=== PATIENT | male | born 1935 | race Caucasian/White ===

== ENCOUNTER 2017-12-10 11:03 | Observation (INO) | payer BC ==
[2017-12-10 17:49] LABS: ADD MAN DIFF? NO
[2017-12-10 17:53] LABS: WHITE BLOOD COUNT 7.4 10^3/ul (4.8-10.8)
[2017-12-10 17:53] LABS: BASOPHILS % 0.4 % (0.0-2.0); EOSINOPHILS # 0.3 10^3/ul (0.0-0.5); EOSINOPHILS % 3.6 % (0.0-7.0); HEMATOCRIT 44.6 % (42.0-52.0); HEMOGLOBIN 14.9 g/dl (14.0-18.0); LYMPHOCYTES # 2.5 10^3/ul (0.8-2.9); LYMPHOCYTES % 33.6 % (15.0-51.0); MEAN CORPUSCULAR HEMOGLOBIN 30.3 pg (29.0-33.0); MEAN CORPUSCULAR HGB CONC 33.4 g/dl (32.0-37.0); MEAN CORPUSCULAR VOLUME 90.8 fl (82.0-101.0); MONOCYTE # 0.6 10^3/ul (0.3-0.9); MONOCYTES % 8.5 % (0.0-11.0); NEUTROPHILS % 53.8 % (39.0-77.0); PLATELET COUNT 179 10^3/UL (140-415); RED BLOOD COUNT 4.91 10^6/ul (4.70-6.10); RED CELL DISTRIBUTION WIDTH 13.3 % (11.5-14.5)
[2017-12-10 18:10] LABS: ALANINE AMINOTRANSFERASE 65 IU/L (13-69); ALBUMIN 4.9 g/dl (3.3-4.9); ALBUMIN/GLOBULIN RATIO 1.19; ALKALINE PHOSPHATASE 79 IU/L (42-121); ANION GAP 15 (8-16); ASPARTATE AMINO TRANSFERASE 38 IU/L (15-46); BILIRUBIN,INDIRECT 1.4 mg/dl (0-1.1); BILIRUBIN,TOTAL 1.4 mg/dl (0.2-1.3); BLOOD UREA NITROGEN 26 mg/dl (7-20); CALCIUM 10.7 mg/dl (8.4-10.2); CARBON DIOXIDE 28 mmol/L (21-31); CHLORIDE 104 mmol/L (97-110); CREATININE 1.23 mg/dl (0.61-1.24); GLUCOSE 163 mg/dl (70-220); LIPASE 92 U/L (23-300); POTASSIUM 4.7 mmol/L (3.5-5.1); SODIUM 142 mmol/L (135-144)
[2017-12-10] MEDS: ASPIRIN 81 MG TAB PO (18:12)
[2017-12-10 18:15] LABS: INR 1.04; PROTIME 13.7 Sec (11.9-14.9); PT RATIO 1.1
[2017-12-10 18:22] LABS: B-TYPE NATRIURETIC PEPTIDE 867 PG/ML (0-450); TROPONIN-I 0.014 ng/ml (0.00-0.12)
[2017-12-10] MEDS: NITROGLYCERIN (SL) 0.4 MG TAB SL (18:34)
[2017-12-10] MEDS ORDERED: ACETAMINOPHEN 325 MG TAB PO (22:30)
[2017-12-10] MEDS ORDERED: NITROGLYCERIN (SL) 0.4 MG TAB SL ×2 (22:30)
[2017-12-10] MEDS ORDERED: morphine 2 MG INJ IV (22:30)
[2017-12-10] MEDS ORDERED: ONDANSETRON 4 MG INJ IV (22:30)
[2017-12-10] MEDS ORDERED: NACL 0.9% 3 ML SYG IV (22:30)
[2017-12-10] MEDS ORDERED: ALBUTEROL/IPRATROPIUM (NEB) 3 ML AMP INH (22:30)
[2017-12-10 23:25] LABS: CREATINE KINASE 59 IU/L (23-200)
[2017-12-10 23:39] LABS: CK INDEX 2.7; CK-MB 1.61 ng/ml (0.0-2.4); TROPONIN-I 0.028 ng/ml (0.00-0.12)
[2017-12-11] MEDS: ACCU-CHEK XX (02:00)
[2017-12-11 06:24] LABS: ADD MAN DIFF? NO
[2017-12-11 06:32] LABS: BASOPHILS % 0.3 % (0.0-2.0); EOSINOPHILS # 0.3 10^3/ul (0.0-0.5); EOSINOPHILS % 4.7 % (0.0-7.0); HEMOGLOBIN 13.5 g/dl (14.0-18.0); LYMPHOCYTES # 2.5 10^3/ul (0.8-2.9); LYMPHOCYTES % 39.7 % (15.0-51.0); MEAN CORPUSCULAR HEMOGLOBIN 30.6 pg (29.0-33.0); MEAN CORPUSCULAR HGB CONC 33.8 g/dl (32.0-37.0); MEAN CORPUSCULAR VOLUME 90.7 fl (82.0-101.0); MEAN PLATELET VOLUME 10.1 fl (7.4-10.4); MONOCYTE # 0.8 10^3/ul (0.3-0.9); MONOCYTES % 12.3 % (0.0-11.0); NEUTROPHIL # 2.7 10^3/ul (1.6-7.5); NEUTROPHILS % 42.7 % (39.0-77.0); PLATELET COUNT 152 10^3/UL (140-415); RED BLOOD COUNT 4.41 10^6/ul (4.70-6.10); RED CELL DISTRIBUTION WIDTH 13.3 % (11.5-14.5)
[2017-12-11 06:32] LABS: WHITE BLOOD COUNT 6.3 10^3/ul (4.8-10.8)
[2017-12-11 06:55] LABS: ALANINE AMINOTRANSFERASE 49 IU/L (13-69); ALBUMIN 3.7 g/dl (3.3-4.9); ALBUMIN/GLOBULIN RATIO 1.12; ALKALINE PHOSPHATASE 47 IU/L (42-121); ANION GAP 10 (8-16); ASPARTATE AMINO TRANSFERASE 31 IU/L (15-46); BILIRUBIN,INDIRECT 1.4 mg/dl (0-1.1); BILIRUBIN,TOTAL 1.4 mg/dl (0.2-1.3); BLOOD UREA NITROGEN 25 mg/dl (7-20); CALCIUM 9.8 mg/dl (8.4-10.2); CARBON DIOXIDE 27 mmol/L (21-31); CHLORIDE 109 mmol/L (97-110); CHOL/HDL RATIO 2.8 RATIO; CHOLESTEROL 113 mg/dl (100-200); CREATININE 1.18 mg/dl (0.61-1.24); GLUCOSE 72 mg/dl (70-220); HDL CHOLESTEROL 39 mg/dl (31-75); LDL CHOLESTEROL,CALCULATED 56 mg/dl; MAGNESIUM 2.2 mg/dl (1.7-2.5); POTASSIUM 3.9 mmol/L (3.5-5.1); SODIUM 142 mmol/L (135-144); TRIGLYCERIDES 91 mg/dl (0-149)
[2017-12-11 07:22] LABS: CREATINE KINASE 55 IU/L (23-200)
[2017-12-11 07:34] LABS: CK INDEX 2.1
[2017-12-11] MEDS: INSULIN ASPART [NOVOLOG] 3 ML PEN SC ×4 (07:35→21:00)
[2017-12-11 07:36] LABS: CK-MB 1.16 ng/ml (0.0-2.4)
[2017-12-11 07:42] LABS: HEMOGLOBIN A1C 8.4 % (0-5.9)
[2017-12-11] MEDS: ASPIRIN 81 MG TAB PO (08:56)
[2017-12-11] MEDS: APIXABAN 5 MG TABLET PO ×2 (08:56→20:48)
[2017-12-11] MEDS: SALMETEROL/FLUTICASONE 250/50 INHA INH ×2 (08:58→20:47)
[2017-12-11] MEDS: INSULIN GLARGINE [LANtus] 3 ML PEN SC (09:09)
[2017-12-11] MEDS: FUROSEMIDE 20 MG TAB PO (10:57)
[2017-12-11] MEDS: ATORVASTATIN 20 MG TAB PO (20:49)
[2017-12-11] MEDS: TAMSULOSIN (SR) 0.4 MG CAP PO (22:11)
[2017-12-12] MEDS: ACCU-CHEK XX (02:00)
[2017-12-12 05:30] LABS: ADD MAN DIFF? NO
[2017-12-12 05:40] LABS: BASOPHILS % 0.6 % (0.0-2.0); EOSINOPHILS # 0.3 10^3/ul (0.0-0.5); EOSINOPHILS % 4.1 % (0.0-7.0); HEMATOCRIT 39.9 % (42.0-52.0); HEMOGLOBIN 13.5 g/dl (14.0-18.0); LYMPHOCYTES # 2.8 10^3/ul (0.8-2.9); LYMPHOCYTES % 41.2 % (15.0-51.0); MEAN CORPUSCULAR HEMOGLOBIN 30.5 pg (29.0-33.0); MEAN CORPUSCULAR HGB CONC 33.8 g/dl (32.0-37.0); MEAN CORPUSCULAR VOLUME 90.1 fl (82.0-101.0); MEAN PLATELET VOLUME 10.3 fl (7.4-10.4); MONOCYTE # 0.7 10^3/ul (0.3-0.9); MONOCYTES % 10.1 % (0.0-11.0); NEUTROPHILS % 43.9 % (39.0-77.0); PLATELET COUNT 155 10^3/UL (140-415); RED BLOOD COUNT 4.43 10^6/ul (4.70-6.10); RED CELL DISTRIBUTION WIDTH 13.5 % (11.5-14.5)
[2017-12-12 05:40] LABS: WHITE BLOOD COUNT 6.9 10^3/ul (4.8-10.8)
[2017-12-12 06:02] LABS: ALANINE AMINOTRANSFERASE 50 IU/L (13-69); ALBUMIN 3.9 g/dl (3.3-4.9); ALBUMIN/GLOBULIN RATIO 1.25; ALKALINE PHOSPHATASE 63 IU/L (42-121); ANION GAP 14 (8-16); ASPARTATE AMINO TRANSFERASE 35 IU/L (15-46); BILIRUBIN,INDIRECT 0.7 mg/dl (0-1.1); BILIRUBIN,TOTAL 0.7 mg/dl (0.2-1.3); BLOOD UREA NITROGEN 34 mg/dl (7-20); CALCIUM 9.4 mg/dl (8.4-10.2); CARBON DIOXIDE 26 mmol/L (21-31); CHLORIDE 108 mmol/L (97-110); CREATININE 1.35 mg/dl (0.61-1.24); GLUCOSE 106 mg/dl (70-220); MAGNESIUM 2.1 mg/dl (1.7-2.5); PHOSPHORUS 5.1 mg/dl (2.5-4.9); SODIUM 144 mmol/L (135-144)
[2017-12-12 06:09] LABS: LIPASE 92 U/L (23-300)
[2017-12-12 06:11] LABS: TROPONIN-I 0.023 ng/ml (0.00-0.12)
[2017-12-12] MEDS: INSULIN ASPART [NOVOLOG] 3 ML PEN SC ×3 (07:35→17:24)
[2017-12-12] MEDS: INSULIN GLARGINE [LANtus] 3 ML PEN SC (09:00)
[2017-12-12] MEDS: APIXABAN 5 MG TABLET PO (09:25)
[2017-12-12] MEDS: FUROSEMIDE 20 MG TAB PO (09:26)
[2017-12-12] MEDS: ASPIRIN 81 MG TAB PO (09:29)
[2017-12-12] MEDS: SALMETEROL/FLUTICASONE 250/50 INHA INH (09:29)
[2017-12-12] MEDS: REGADENOSON 0.4 MG/5 ML SYG (14:36)
== END 2017-12-12 17:59 | disposition home or self-care (01) ==
LOC: E/R 11:03 → MS3 12-11 20:12
DX: R07.9 Chest pain, unspecified (principal); E11.9 Type 2 diabetes mellitus without complications; I48.91 Unspecified atrial fibrillation; N40.0 Benign prostatic hyperplasia without lower urinary tract symptoms; I25.10 Atherosclerotic heart disease of native coronary artery without angina pectoris; I50.20 Unspecified systolic (congestive) heart failure; Z98.61 Coronary angioplasty status; Z79.4 Long term (current) use of insulin; Z79.82 Long term (current) use of aspirin; Z95.810 Presence of automatic (implantable) cardiac defibrillator
CPT/HCPCS: 36415; 71045; 78452; 80053; 80061; 82550; 82553; 82962; 83036; 83690; 83735; 83880; 84100; 84484; 85025; 85610; 93005; 93017; 99217; 99285-25

== ENCOUNTER 2018-09-08 22:17 | Inpatient (IN) | payer BC ==
[2018-09-09 00:46] LABS: URINE BLOOD (Dip) POC Negative (NEGATIVE); URINE GLUCOSE (Dip) POC Negative (NEGATIVE); URINE KETONES (Dip) POC Negative (NEGATIVE); URINE LEUKOCYTE EST (Dip) POC Negative (NEGATIVE); URINE NITRITE (Dip) POC Negative (NEGATIVE); URINE TOTAL PROTEIN POC Negative (NEGATIVE)
[2018-09-09 01:16] LABS: ADD MAN DIFF? NO
[2018-09-09 01:18] LABS: WHITE BLOOD COUNT 7.5 10^3/ul (4.8-10.8)
[2018-09-09 01:18] LABS: BASOPHILS % 0.3 % (0.0-2.0); EOSINOPHILS # 0.3 10^3/ul (0.0-0.5); EOSINOPHILS % 3.3 % (0.0-7.0); HEMATOCRIT 33.3 % (42.0-52.0); HEMOGLOBIN 10.9 g/dl (14.0-18.0); LYMPHOCYTES # 2.3 10^3/ul (0.8-2.9); LYMPHOCYTES % 30.4 % (15.0-51.0); MEAN CORPUSCULAR HEMOGLOBIN 30.9 pg (29.0-33.0); MEAN CORPUSCULAR HGB CONC 32.7 g/dl (32.0-37.0); MEAN CORPUSCULAR VOLUME 94.3 fl (82.0-101.0); MONOCYTE # 0.8 10^3/ul (0.3-0.9); MONOCYTES % 10.5 % (0.0-11.0); NEUTROPHIL # 4.1 10^3/ul (1.6-7.5); NEUTROPHILS % 54.8 % (39.0-77.0); PLATELET COUNT 137 10^3/UL (140-415); RED BLOOD COUNT 3.53 10^6/ul (4.70-6.10); RED CELL DISTRIBUTION WIDTH 12.8 % (11.5-14.5)
[2018-09-09 01:25] LABS: ALANINE AMINOTRANSFERASE 115 IU/L (13-69); ALBUMIN 4.5 g/dl (3.3-4.9); ALBUMIN/GLOBULIN RATIO 1.32; ALKALINE PHOSPHATASE 104 IU/L (42-121); ANION GAP 13 (5-13); ASPARTATE AMINO TRANSFERASE 89 IU/L (15-46); BILIRUBIN,INDIRECT 0.8 mg/dl (0-1.1); BILIRUBIN,TOTAL 0.8 mg/dl (0.2-1.3); BLOOD UREA NITROGEN 82 mg/dl (7-20); CALCIUM 9.3 mg/dl (8.4-10.2); CARBON DIOXIDE 14 mmol/L (21-31); CHLORIDE 111 mmol/L (97-110); CREATININE 2.22 mg/dl (0.61-1.24); GLUCOSE 205 mg/dl (70-220); LIPASE 243 U/L (23-300); SODIUM 138 mmol/L (135-144); TOTAL PROTEIN 7.9 g/dl (6.1-8.1)
[2018-09-09 01:32] LABS: POTASSIUM 6.6 mmol/L (3.5-5.1)
[2018-09-09 01:36] LABS: B-TYPE NATRIURETIC PEPTIDE 1970 PG/ML (0-450); TROPONIN-I 0.043 ng/ml (0.000-0.120)
[2018-09-09] MEDS: NA POLYST SULFON 15 GM/60 ML BTL PO ×2 (01:41→20:37)
[2018-09-09] MEDS: ALBUTEROL 0.5% (NEB) 2.5 MG/0.5 ML AMP INH (01:48)
[2018-09-09] MEDS: INSULIN REGULAR, HUMAN 100 UNIT/1 ML 3ML VIAL IVP (03:04)
[2018-09-09] MEDS: DEXTROSE 50% 50 ML SYRINGE IV ×2 (03:10→04:23)
[2018-09-09] MEDS ORDERED: ONDANSETRON 4 MG INJ IV (03:30)
[2018-09-09] MEDS ORDERED: ACETAMINOPHEN 325 MG TAB PO (03:30)
[2018-09-09] MEDS ORDERED: NACL 0.9% 3 ML SYG IV (03:30)
[2018-09-09] MEDS ORDERED: BISACODYL (EC) 5 MG TAB PO (03:30)
[2018-09-09] MEDS ORDERED: DOCUSATE SODIUM 100 MG CAP PO (03:30)
[2018-09-09] MEDS: CALCIUM GLUCONATE 10% 1 GM in DEXTROSE 5% 100 ML IVPB (04:07)
[2018-09-09] MEDS: SOD CHLORIDE 0.9% 1,000 ML IV (04:29)
[2018-09-09 06:23] LABS: ADD MAN DIFF? NO
[2018-09-09 06:29] LABS: BASOPHILS % 0.3 % (0.0-2.0); EOSINOPHILS # 0.2 10^3/ul (0.0-0.5); EOSINOPHILS % 2.2 % (0.0-7.0); HEMATOCRIT 31.2 % (42.0-52.0); HEMOGLOBIN 10.1 g/dl (14.0-18.0); LYMPHOCYTES % 28.1 % (15.0-51.0); MEAN CORPUSCULAR HEMOGLOBIN 30.5 pg (29.0-33.0); MEAN CORPUSCULAR HGB CONC 32.4 g/dl (32.0-37.0); MEAN CORPUSCULAR VOLUME 94.3 fl (82.0-101.0); MEAN PLATELET VOLUME 10.6 fl (7.4-10.4); MONOCYTE # 0.7 10^3/ul (0.3-0.9); MONOCYTES % 10.2 % (0.0-11.0); NEUTROPHIL # 4.1 10^3/ul (1.6-7.5); NEUTROPHILS % 58.9 % (39.0-77.0); PLATELET COUNT 122 10^3/UL (140-415); RED BLOOD COUNT 3.31 10^6/ul (4.70-6.10); RED CELL DISTRIBUTION WIDTH 12.9 % (11.5-14.5)
[2018-09-09 06:29] LABS: WHITE BLOOD COUNT 6.9 10^3/ul (4.8-10.8)
[2018-09-09] MEDS ORDERED: LORAZEPAM 0.5 MG TAB PO (06:30)
[2018-09-09 06:53] LABS: ALANINE AMINOTRANSFERASE 107 IU/L (13-69); ALBUMIN 4.1 g/dl (3.3-4.9); ALBUMIN/GLOBULIN RATIO 1.36; ALKALINE PHOSPHATASE 83 IU/L (42-121); ANION GAP 9 (5-13); ASPARTATE AMINO TRANSFERASE 77 IU/L (15-46); BILIRUBIN,INDIRECT 1.1 mg/dl (0-1.1); BILIRUBIN,TOTAL 1.1 mg/dl (0.2-1.3); BLOOD UREA NITROGEN 81 mg/dl (7-20); CALCIUM 9.3 mg/dl (8.4-10.2); CARBON DIOXIDE 16 mmol/L (21-31); CHLORIDE 113 mmol/L (97-110); CREATININE 2.25 mg/dl (0.61-1.24); GLUCOSE 193 mg/dl (70-220); POTASSIUM 5.8 mmol/L (3.5-5.1); SODIUM 138 mmol/L (135-144); TOTAL PROTEIN 7.1 g/dl (6.1-8.1)
[2018-09-09 07:47] LABS: CREATINE KINASE 1304 IU/L (23-200)
[2018-09-09 08:00] LABS: CK INDEX 0.8; TROPONIN-I 0.038 ng/ml (0.000-0.120)
[2018-09-09] MEDS ORDERED: DEXTROSE 50% 50 ML SYRINGE IV ×2 (08:00)
[2018-09-09] MEDS ORDERED: GLUCOSE GEL 15 GRAM TUBE BUCCAL (08:00)
[2018-09-09] MEDS ORDERED: GLUCAGON 1 MG INJ IM (08:00)
[2018-09-09] MEDS ORDERED: GLUCOSE GEL 15 GRAM TUBE PO ×2 (08:00)
[2018-09-09] MEDS ORDERED: LANTUS SC (09:00)
[2018-09-09] MEDS: FINASTERIDE 5 MG TAB PO (09:36)
[2018-09-09 11:03] LABS: ADD UMIC NO; UR ASCORBIC ACID 20 mg/dL (NEGATIVE); UR BILIRUBIN (Dip) NEGATIVE (NEGATIVE); UR BLOOD (Dip) NEGATIVE (NEGATIVE); UR CLARITY CLEAR (CLEAR); UR COLOR YELLOW (YELLOW); UR GLUCOSE (Dip) NEGATIVE (NEGATIVE); UR KETONES (Dip) NEGATIVE (NEGATIVE); UR LEUKOCYTE ESTERASE (Dip) NEGATIVE Leu/ul (NEGATIVE); UR NITRITE (Dip) NEGATIVE (NEGATIVE); UR SPECIFIC GRAVITY (Dip) 1.012 (1.003-1.030); UR TOTAL PROTEIN (Dip) NEGATIVE (NEGATIVE); UR UROBILINOGEN (Dip) NEGATIVE (NEGATIVE)
[2018-09-09 11:10] LABS: SODIUM,URINE RANDOM 46 mmol/L (30-90)
[2018-09-09 11:12] LABS: CREATININE,URINE RANDOM 66.08 mg/dl (20-370); PROTEIN/CREAT RATIO 0.13 RATIO
[2018-09-09] MEDS: GABAPENTIN 100 MG CAP PO ×2 (12:43→21:00)
[2018-09-09] MEDS: BACLOFEN 10 MG TAB PO ×2 (12:43→20:39)
[2018-09-09] MEDS: ALBUTEROL/IPRATROPIUM (NEB) 3 ML AMP HHN ×3 (12:51→20:44)
[2018-09-09] MEDS: CITRIC ACID/NA CITRATE 30 ML CUP PO ×2 (16:08→20:39)
[2018-09-09 19:01] LABS: ANION GAP 11 (5-13); BLOOD UREA NITROGEN 71 mg/dl (7-20); CALCIUM 9.3 mg/dl (8.4-10.2); CARBON DIOXIDE 17 mmol/L (21-31); CHLORIDE 111 mmol/L (97-110); CREATININE 1.98 mg/dl (0.61-1.24); GLUCOSE 172 mg/dl (70-220); POTASSIUM 5.9 mmol/L (3.5-5.1); SODIUM 139 mmol/L (135-144)
[2018-09-09] MEDS: ATORVASTATIN 20 MG TAB PO (20:38)
[2018-09-09] MEDS: TAMSULOSIN (SR) 0.4 MG CAP PO (21:01)
[2018-09-10] MEDS: ALBUTEROL/IPRATROPIUM (NEB) 3 ML AMP HHN ×6 (00:25→21:11)
[2018-09-10 06:10] LABS: ADD MAN DIFF? NO
[2018-09-10 06:23] LABS: WHITE BLOOD COUNT 7.3 10^3/ul (4.8-10.8)
[2018-09-10 06:23] LABS: BASOPHILS % 0.3 % (0.0-2.0); EOSINOPHILS # 0.2 10^3/ul (0.0-0.5); EOSINOPHILS % 3.3 % (0.0-7.0); HEMATOCRIT 34.9 % (42.0-52.0); HEMOGLOBIN 11.2 g/dl (14.0-18.0); LYMPHOCYTES # 2.3 10^3/ul (0.8-2.9); LYMPHOCYTES % 30.8 % (15.0-51.0); MEAN CORPUSCULAR HEMOGLOBIN 30.6 pg (29.0-33.0); MEAN CORPUSCULAR HGB CONC 32.1 g/dl (32.0-37.0); MEAN CORPUSCULAR VOLUME 95.4 fl (82.0-101.0); MEAN PLATELET VOLUME 10.5 fl (7.4-10.4); MONOCYTE # 0.8 10^3/ul (0.3-0.9); NEUTROPHILS % 54.2 % (39.0-77.0); PLATELET COUNT 139 10^3/UL (140-415); RED BLOOD COUNT 3.66 10^6/ul (4.70-6.10); RED CELL DISTRIBUTION WIDTH 12.9 % (11.5-14.5)
[2018-09-10 06:42] LABS: ANION GAP 11 (5-13); BLOOD UREA NITROGEN 57 mg/dl (7-20); CALCIUM 9.7 mg/dl (8.4-10.2); CARBON DIOXIDE 22 mmol/L (21-31); CHLORIDE 112 mmol/L (97-110); CREATININE 1.72 mg/dl (0.61-1.24); GLUCOSE 145 mg/dl (70-220); POTASSIUM 5.4 mmol/L (3.5-5.1); SODIUM 145 mmol/L (135-144)
[2018-09-10] MEDS: CITRIC ACID/NA CITRATE 30 ML CUP PO ×3 (09:34→20:43)
[2018-09-10] MEDS: FINASTERIDE 5 MG TAB PO (09:35)
[2018-09-10] MEDS: BACLOFEN 10 MG TAB PO ×3 (09:35→20:41)
[2018-09-10] MEDS: GABAPENTIN 100 MG CAP PO ×3 (09:35→20:41)
[2018-09-10] MEDS: INSULIN GLARGINE [LANTus] (100 UNITS/ML) SYG SC (09:40)
[2018-09-10 10:02] LABS: IRON 80 ug/dl (35-150)
[2018-09-10] MEDS: INFLUENZA VIRUS VACCINE 0.5 ML (DISPENSING) IM* (10:03)
[2018-09-10 10:12] LABS: % IRON SATURATION 24 % SAT (22-52); TOTAL IRON BINDING CAPACITY 340 ug/dl (241-421)
[2018-09-10 10:15] LABS: HEMOGLOBIN A1C 8.9 % (0-5.9)
[2018-09-10] MEDS: ATORVASTATIN 20 MG TAB PO (20:41)
[2018-09-10] MEDS: TAMSULOSIN (SR) 0.4 MG CAP PO (20:43)
[2018-09-10] MEDS: IOHEXOL 14.3 MG(I)/ML (ADULT) BTL PO (21:58)
[2018-09-11] MEDS: ALBUTEROL/IPRATROPIUM (NEB) 3 ML AMP HHN ×6 (02:24→20:04)
[2018-09-11 06:00] LABS: ADD MAN DIFF? NO
[2018-09-11 06:01] LABS: WHITE BLOOD COUNT 6.3 10^3/ul (4.8-10.8)
[2018-09-11 06:01] LABS: BASOPHILS % 0.3 % (0.0-2.0); EOSINOPHILS # 0.2 10^3/ul (0.0-0.5); EOSINOPHILS % 3.7 % (0.0-7.0); HEMATOCRIT 32.4 % (42.0-52.0); HEMOGLOBIN 10.5 g/dl (14.0-18.0); LYMPHOCYTES % 31.9 % (15.0-51.0); MEAN CORPUSCULAR HEMOGLOBIN 30.9 pg (29.0-33.0); MEAN CORPUSCULAR HGB CONC 32.4 g/dl (32.0-37.0); MEAN CORPUSCULAR VOLUME 95.3 fl (82.0-101.0); MEAN PLATELET VOLUME 10.3 fl (7.4-10.4); MONOCYTE # 0.7 10^3/ul (0.3-0.9); MONOCYTES % 11.3 % (0.0-11.0); NEUTROPHIL # 3.3 10^3/ul (1.6-7.5); NEUTROPHILS % 52.6 % (39.0-77.0); PLATELET COUNT 135 10^3/UL (140-415); RED CELL DISTRIBUTION WIDTH 12.9 % (11.5-14.5)
[2018-09-11 06:57] LABS: ANION GAP 7 (5-13); BLOOD UREA NITROGEN 38 mg/dl (7-20); CALCIUM 9.3 mg/dl (8.4-10.2); CARBON DIOXIDE 27 mmol/L (21-31); CHLORIDE 111 mmol/L (97-110); CREATININE 1.46 mg/dl (0.61-1.24); GLUCOSE 94 mg/dl (70-220); SODIUM 145 mmol/L (135-144)
[2018-09-11] MEDS: CITRIC ACID/NA CITRATE 30 ML CUP PO ×3 (08:16→20:53)
[2018-09-11] MEDS: BACLOFEN 10 MG TAB PO ×3 (08:17→20:53)
[2018-09-11] MEDS: BISACODYL (EC) 5 MG TAB PO ×2 (08:17→16:13)
[2018-09-11] MEDS: FINASTERIDE 5 MG TAB PO (08:17)
[2018-09-11] MEDS: INSULIN GLARGINE [LANTus] (100 UNITS/ML) SYG SC (08:28)
[2018-09-11] MEDS: GABAPENTIN 100 MG CAP PO ×3 (09:16→20:53)
[2018-09-11] MEDS: POLYETHYLENE GLYCOL 3350 119 GM POWDER PO ×2 (11:40→16:13)
[2018-09-11] MEDS: FERROUS SULFATE (EC) 325 MG TAB PO ×2 (12:49→20:53)
[2018-09-11] MEDS: MAGNESIUM CITRATE 300 ML BTL PO (12:50)
[2018-09-11] MEDS: ATORVASTATIN 20 MG TAB PO (20:52)
[2018-09-11] MEDS: TAMSULOSIN (SR) 0.4 MG CAP PO (20:56)
[2018-09-12] MEDS: ALBUTEROL/IPRATROPIUM (NEB) 3 ML AMP HHN ×6 (01:11→20:59)
[2018-09-12 05:44] LABS: ADD MAN DIFF? NO
[2018-09-12 05:53] LABS: BASOPHILS % 0.3 % (0.0-2.0); EOSINOPHILS # 0.3 10^3/ul (0.0-0.5); EOSINOPHILS % 5.4 % (0.0-7.0); HEMATOCRIT 36.1 % (42.0-52.0); HEMOGLOBIN 11.6 g/dl (14.0-18.0); LYMPHOCYTES % 32.7 % (15.0-51.0); MEAN CORPUSCULAR HEMOGLOBIN 30.9 pg (29.0-33.0); MEAN CORPUSCULAR HGB CONC 32.1 g/dl (32.0-37.0); MEAN PLATELET VOLUME 10.4 fl (7.4-10.4); MONOCYTE # 0.7 10^3/ul (0.3-0.9); MONOCYTES % 11.2 % (0.0-11.0); NEUTROPHILS % 50.2 % (39.0-77.0); PLATELET COUNT 146 10^3/UL (140-415); RED BLOOD COUNT 3.76 10^6/ul (4.70-6.10); RED CELL DISTRIBUTION WIDTH 12.8 % (11.5-14.5)
[2018-09-12 06:43] LABS: ANION GAP 6 (5-13)
[2018-09-12 07:05] LABS: BLOOD UREA NITROGEN 33 mg/dl (7-20); CALCIUM 9.5 mg/dl (8.4-10.2); CARBON DIOXIDE 27 mmol/L (21-31); CHLORIDE 113 mmol/L (97-110); CREATININE 1.48 mg/dl (0.61-1.24); GLUCOSE 64 mg/dl (70-220); POTASSIUM 4.8 mmol/L (3.5-5.1); SODIUM 146 mmol/L (135-144)
[2018-09-12] MEDS: FINASTERIDE 5 MG TAB PO (08:35)
[2018-09-12] MEDS: FERROUS SULFATE (EC) 325 MG TAB PO ×3 (08:35→21:52)
[2018-09-12] MEDS: AMIODARONE 200 MG TAB PO ×2 (08:35→21:00)
[2018-09-12] MEDS: GABAPENTIN 100 MG CAP PO ×3 (08:35→21:52)
[2018-09-12] MEDS: BACLOFEN 10 MG TAB PO ×3 (08:35→21:52)
[2018-09-12] MEDS: CITRIC ACID/NA CITRATE 30 ML CUP PO ×3 (08:36→21:53)
[2018-09-12] MEDS: INSULIN GLARGINE [LANTus] (100 UNITS/ML) SYG SC (08:50)
[2018-09-12] MEDS: DEXTROSE 5%-0.45% NACL 1,000 ML IV (09:56)
[2018-09-12] MEDS ORDERED: PROPOFOL 20 ML (15:31)
[2018-09-12] MEDS ORDERED: EPHEDrine SULFATE 50 MG/5 ML SYG IV (17:00)
[2018-09-12] MEDS ORDERED: hydrALAzine 20 MG INJ IV (17:00)
[2018-09-12] MEDS ORDERED: LABETALOL HCL 20MG INJ IV (17:00)
[2018-09-12] MEDS ORDERED: FENTAnyl 50 MCG/ML VIAL IV (17:00)
[2018-09-12] MEDS: INSULIN ASPART [NOVOLOG] 3 ML PEN SC ×2 (18:00→21:00)
[2018-09-12] MEDS: TAMSULOSIN (SR) 0.4 MG CAP PO (21:52)
[2018-09-12] MEDS: ATORVASTATIN 20 MG TAB PO (21:53)
[2018-09-13] MEDS: ALBUTEROL/IPRATROPIUM (NEB) 3 ML AMP HHN ×5 (00:40→15:54)
[2018-09-13] MEDS: AMIODARONE 200 MG TAB PO ×2 (00:54→08:53)
[2018-09-13] MEDS: ACCU-CHEK XX (02:00)
[2018-09-13 06:58] LABS: ADD MAN DIFF? NO
[2018-09-13 07:08] LABS: WHITE BLOOD COUNT 7.2 10^3/ul (4.8-10.8)
[2018-09-13 07:08] LABS: BASOPHILS % 0.3 % (0.0-2.0); EOSINOPHILS # 0.2 10^3/ul (0.0-0.5); EOSINOPHILS % 2.8 % (0.0-7.0); HEMATOCRIT 35.8 % (42.0-52.0); HEMOGLOBIN 11.5 g/dl (14.0-18.0); LYMPHOCYTES # 1.4 10^3/ul (0.8-2.9); LYMPHOCYTES % 19.4 % (15.0-51.0); MEAN CORPUSCULAR HEMOGLOBIN 30.7 pg (29.0-33.0); MEAN CORPUSCULAR HGB CONC 32.1 g/dl (32.0-37.0); MEAN CORPUSCULAR VOLUME 95.7 fl (82.0-101.0); MEAN PLATELET VOLUME 9.9 fl (7.4-10.4); MONOCYTE # 0.8 10^3/ul (0.3-0.9); MONOCYTES % 10.9 % (0.0-11.0); NEUTROPHIL # 4.7 10^3/ul (1.6-7.5); NEUTROPHILS % 66.3 % (39.0-77.0); PLATELET COUNT 148 10^3/UL (140-415); RED BLOOD COUNT 3.74 10^6/ul (4.70-6.10); RED CELL DISTRIBUTION WIDTH 12.5 % (11.5-14.5)
[2018-09-13 07:43] LABS: ANION GAP 10 (5-13); BLOOD UREA NITROGEN 28 mg/dl (7-20); CARBON DIOXIDE 26 mmol/L (21-31); CHLORIDE 106 mmol/L (97-110); CREATININE 1.42 mg/dl (0.61-1.24); GLUCOSE 163 mg/dl (70-220); POTASSIUM 4.9 mmol/L (3.5-5.1); SODIUM 142 mmol/L (135-144)
[2018-09-13] MEDS: CITRIC ACID/NA CITRATE 30 ML CUP PO ×2 (08:52→13:15)
[2018-09-13] MEDS: FINASTERIDE 5 MG TAB PO (08:53)
[2018-09-13] MEDS: FERROUS SULFATE (EC) 325 MG TAB PO ×2 (08:53→13:18)
[2018-09-13] MEDS: GABAPENTIN 100 MG CAP PO ×2 (08:53→13:15)
[2018-09-13] MEDS: BACLOFEN 10 MG TAB PO ×2 (08:53→13:15)
[2018-09-13] MEDS: INSULIN ASPART [NOVOLOG] 3 ML PEN SC ×3 (09:02→17:39)
[2018-09-13] MEDS: DEXTROSE 5%-0.45% NACL 1,000 ML IV (10:00)
[2018-09-13] MEDS: INSULIN GLARGINE [LANTus] (100 UNITS/ML) SYG SC (10:46)
== END 2018-09-13 20:25 | disposition home or self-care (01) | DRG 378 ==
LOC: E/R 22:17 → 2NE 09-12 14:15 → E/R 09-09 08:15 → TEL 09-09 03:28
PROC: 0DJD8ZZ Inspection of Lower Intestinal Tract, Via Natural or Artificial Opening Endoscopic (ICD-10-PCS; principal; 2018-09-12 15:00)
DX: K92.1 Melena (principal); N17.9 Acute kidney failure, unspecified; E87.2 Acidosis; I13.0 Hypertensive heart and chronic kidney disease with heart failure and stage 1 through stage 4 chronic kidney disease, or unspecified chronic kidney disease; I50.22 Chronic systolic (congestive) heart failure; D68.69 Other thrombophilia; N18.4 Chronic kidney disease, stage 4 (severe); D63.1 Anemia in chronic kidney disease; M50.10 Cervical disc disorder with radiculopathy, unspecified cervical region; I48.2 Chronic atrial fibrillation; K80.20 Calculus of gallbladder without cholecystitis without obstruction; K59.00 Constipation, unspecified; K57.30 Diverticulosis of large intestine without perforation or abscess without bleeding; E87.5 Hyperkalemia; I25.10 Atherosclerotic heart disease of native coronary artery without angina pectoris; I25.5 Ischemic cardiomyopathy; I48.0 Paroxysmal atrial fibrillation; E78.00 Pure hypercholesterolemia, unspecified; N40.0 Benign prostatic hyperplasia without lower urinary tract symptoms; E11.22 Type 2 diabetes mellitus with diabetic chronic kidney disease; E11.21 Type 2 diabetes mellitus with diabetic nephropathy; I07.1 Rheumatic tricuspid insufficiency; T45.4X5A Adverse effect of iron and its compounds, initial encounter; T50.1X5A Adverse effect of loop [high-ceiling] diuretics, initial encounter; Z95.810 Presence of automatic (implantable) cardiac defibrillator; Z95.5 Presence of coronary angioplasty implant and graft; Z79.4 Long term (current) use of insulin; Z79.01 Long term (current) use of anticoagulants
CPT/HCPCS: 36415; 70450; 71045; 72125; 74176; 76775; 80048; 80053; 81003; 82550; 82553; 82570; 82728; 82962; 83036; 83540; 83690; 83880; 84145; 84300; 84484; 84560; 85025; 89190; 90686; 93005; 94640; 94664; 96374; 96375; 97116; 97163; 97530; 99291-25

== ENCOUNTER 2019-02-14 03:20 | Emergency (ER) | payer BC ==
[2019-02-14 04:43] LABS: ADD MAN DIFF? NO
[2019-02-14 04:45] LABS: BASOPHILS % 0.6 % (0.0-2.0); EOSINOPHILS # 0.4 10^3/ul (0.0-0.5); EOSINOPHILS % 4.9 % (0.0-7.0); HEMATOCRIT 36.6 % (42.0-52.0); HEMOGLOBIN 12.2 g/dl (14.0-18.0); LYMPHOCYTES % 28.7 % (15.0-51.0); MEAN CORPUSCULAR HEMOGLOBIN 30.6 pg (29.0-33.0); MEAN CORPUSCULAR HGB CONC 33.3 g/dl (32.0-37.0); MEAN CORPUSCULAR VOLUME 91.7 fl (82.0-101.0); MONOCYTE # 0.7 10^3/ul (0.3-0.9); MONOCYTES % 10.1 % (0.0-11.0); NEUTROPHIL # 3.9 10^3/ul (1.6-7.5); NEUTROPHILS % 55.1 % (39.0-77.0); PLATELET COUNT 144 10^3/UL (140-415); RED BLOOD COUNT 3.99 10^6/ul (4.70-6.10); RED CELL DISTRIBUTION WIDTH 12.8 % (11.5-14.5)
[2019-02-14 04:45] LABS: WHITE BLOOD COUNT 7.1 10^3/ul (4.8-10.8)
[2019-02-14 05:02] LABS: ALANINE AMINOTRANSFERASE 34 IU/L (13-69); ALBUMIN 3.8 g/dl (3.3-4.9); ALBUMIN/GLOBULIN RATIO 1.18; ALKALINE PHOSPHATASE 92 IU/L (42-121); ANION GAP 9 (5-13); ASPARTATE AMINO TRANSFERASE 30 IU/L (15-46); BLOOD UREA NITROGEN 37 mg/dl (7-20); CALCIUM 9.8 mg/dl (8.4-10.2); CARBON DIOXIDE 22 mmol/L (21-31); CHLORIDE 110 mmol/L (97-110); CREATININE 1.26 mg/dl (0.61-1.24); GLUCOSE 243 mg/dl (70-220); LIPASE 114 U/L (23-300); SODIUM 141 mmol/L (135-144)
[2019-02-14 05:04] LABS: INR 1.08; PROTIME 14.1 Sec (11.9-14.9); PT RATIO 1.1
[2019-02-14 05:05] LABS: PARTIAL THROMBOPLASTIN TIME 26.6 Sec (23.0-35.0)
[2019-02-14 05:19] LABS: POTASSIUM 4.4 mmol/L (3.5-5.1)
== END 2019-02-14 07:05 | disposition home or self-care (01) ==
LOC: E/R 03:20
DX: R04.0 Epistaxis (principal); I10 Essential (primary) hypertension; E11.9 Type 2 diabetes mellitus without complications; Z79.4 Long term (current) use of insulin
CPT/HCPCS: 30901; 36415; 80053; 83690; 85025; 85610; 85730; 99283-25

== ENCOUNTER 2019-02-15 04:26 | Emergency (ER) | payer BC | END 2019-02-15 05:55 | disposition home or self-care (01) | LOC: E/R 05:55 | DX: Z48.00 Encounter for change or removal of nonsurgical wound dressing (principal); I10 Essential (primary) hypertension; E11.9 Type 2 diabetes mellitus without complications; Z79.4 Long term (current) use of insulin | CPT/HCPCS: 99282; Z7502 ==

== ENCOUNTER 2019-04-13 16:10 | Inpatient (IN) | payer BC ==
[2019-04-13] MEDS: MECLIZINE 12.5 MG TAB PO (17:52)
[2019-04-13] MEDS: ONDANSETRON 4 MG INJ IV (17:52)
[2019-04-13] MEDS: SOD CHLORIDE 0.9% 1,000 ML IV (17:53)
[2019-04-13] MEDS: morphine 4 MG/ML VIAL IV (17:53)
[2019-04-13 18:00] LABS: ADD MAN DIFF? NO
[2019-04-13 18:02] LABS: BASOPHILS % 0.4 % (0.0-2.0); EOSINOPHILS # 0.4 10^3/ul (0.0-0.5); EOSINOPHILS % 4.3 % (0.0-7.0); HEMOGLOBIN 12.3 g/dl (14.0-18.0); LYMPHOCYTES # 2.2 10^3/ul (0.8-2.9); LYMPHOCYTES % 25.9 % (15.0-51.0); MEAN CORPUSCULAR HEMOGLOBIN 31.1 pg (29.0-33.0); MEAN CORPUSCULAR HGB CONC 33.2 g/dl (32.0-37.0); MEAN CORPUSCULAR VOLUME 93.4 fl (82.0-101.0); MEAN PLATELET VOLUME 10.2 fl (7.4-10.4); MONOCYTE # 0.8 10^3/ul (0.3-0.9); MONOCYTES % 9.8 % (0.0-11.0); NEUTROPHILS % 59.2 % (39.0-77.0); PLATELET COUNT 167 10^3/UL (140-415); RED BLOOD COUNT 3.96 10^6/ul (4.70-6.10)
[2019-04-13 18:02] LABS: WHITE BLOOD COUNT 8.4 10^3/ul (4.8-10.8)
[2019-04-13 18:19] LABS: ALANINE AMINOTRANSFERASE 45 IU/L (13-69); ALBUMIN/GLOBULIN RATIO 1.17; ALKALINE PHOSPHATASE 78 IU/L (42-121); ANION GAP 10 (5-13); ASPARTATE AMINO TRANSFERASE 38 IU/L (15-46); BILIRUBIN,INDIRECT 0.8 mg/dl (0-1.1); BILIRUBIN,TOTAL 0.8 mg/dl (0.2-1.3); BLOOD UREA NITROGEN 47 mg/dl (7-20); CALCIUM 8.9 mg/dl (8.4-10.2); CARBON DIOXIDE 20 mmol/L (21-31); CHLORIDE 103 mmol/L (97-110); CREATININE 2.05 mg/dl (0.61-1.24); GLUCOSE 297 mg/dl (70-220); LIPASE 139 U/L (23-300); POTASSIUM 5.4 mmol/L (3.5-5.1); SODIUM 133 mmol/L (135-144); TOTAL PROTEIN 7.4 g/dl (6.1-8.1)
[2019-04-13 18:30] LABS: B-TYPE NATRIURETIC PEPTIDE 1310 PG/ML (0-450); TROPONIN-I 0.015 ng/ml (0.000-0.120)
[2019-04-13 18:45] LABS: PROTIME 14.3 Sec (11.9-14.9); PT RATIO 1.1
[2019-04-13 18:46] LABS: PARTIAL THROMBOPLASTIN TIME 26.9 Sec (23.0-35.0)
[2019-04-13] MEDS ORDERED: ACETAMINOPHEN 325 MG TAB PO (20:00)
[2019-04-13] MEDS ORDERED: ONDANSETRON 4 MG INJ IV (20:00)
[2019-04-13] MEDS: SODIUM POLYSTYRENE 15 GM KIT (POWDER + SORBITOL) PO (20:13)
[2019-04-13] MEDS: CA CHLORIDE 10% 10 ML SYRINGE IV (20:38)
[2019-04-13] MEDS: NA BICARBONATE 8.4% 50 ML SYG IV (20:38)
[2019-04-13] MEDS: ALBUTEROL 0.5% (NEB) 2.5 MG/0.5 ML AMP INH (20:54)
[2019-04-14] MEDS ORDERED: NITROGLYCERIN (SL) 0.4 MG TAB SL (00:30)
[2019-04-14] MEDS ORDERED: ACETAMINOPHEN 325 MG TAB PO (00:30)
[2019-04-14] MEDS ORDERED: ALBUTEROL/IPRATROPIUM (NEB) 3 ML AMP HHN (00:30)
[2019-04-14] MEDS ORDERED: NACL 0.9% 3 ML SYG IV (00:30)
[2019-04-14] MEDS ORDERED: ONDANSETRON 4 MG INJ IV (00:30)
[2019-04-14] MEDS ORDERED: GLUCOSE GEL 15 GRAM TUBE BUCCAL (01:00)
[2019-04-14] MEDS ORDERED: GLUCAGON 1 MG INJ IM (01:00)
[2019-04-14] MEDS ORDERED: DEXTROSE 50% 50 ML SYRINGE IV ×2 (01:00)
[2019-04-14] MEDS ORDERED: GLUCOSE GEL 15 GRAM TUBE PO ×2 (01:00)
[2019-04-14] MEDS: ACCU-CHEK XX (02:09)
[2019-04-14 06:20] LABS: ADD MAN DIFF? NO
[2019-04-14 06:25] LABS: WHITE BLOOD COUNT 7.4 10^3/ul (4.8-10.8)
[2019-04-14 06:25] LABS: BASOPHILS % 0.3 % (0.0-2.0); EOSINOPHILS # 0.4 10^3/ul (0.0-0.5); EOSINOPHILS % 4.7 % (0.0-7.0); HEMATOCRIT 35.7 % (42.0-52.0); HEMOGLOBIN 11.6 g/dl (14.0-18.0); LYMPHOCYTES # 2.4 10^3/ul (0.8-2.9); LYMPHOCYTES % 32.7 % (15.0-51.0); MEAN CORPUSCULAR HEMOGLOBIN 30.7 pg (29.0-33.0); MEAN CORPUSCULAR HGB CONC 32.5 g/dl (32.0-37.0); MEAN CORPUSCULAR VOLUME 94.4 fl (82.0-101.0); MEAN PLATELET VOLUME 10.1 fl (7.4-10.4); MONOCYTE # 0.9 10^3/ul (0.3-0.9); MONOCYTES % 11.6 % (0.0-11.0); NEUTROPHIL # 3.7 10^3/ul (1.6-7.5); NEUTROPHILS % 50.3 % (39.0-77.0); PLATELET COUNT 152 10^3/UL (140-415); RED BLOOD COUNT 3.78 10^6/ul (4.70-6.10); RED CELL DISTRIBUTION WIDTH 12.1 % (11.5-14.5)
[2019-04-14 06:58] LABS: ALANINE AMINOTRANSFERASE 46 IU/L (13-69); ALBUMIN 3.4 g/dl (3.3-4.9); ALBUMIN/GLOBULIN RATIO 1.17; ALKALINE PHOSPHATASE 55 IU/L (42-121); ANION GAP 9 (5-13); ASPARTATE AMINO TRANSFERASE 40 IU/L (15-46); BILIRUBIN,INDIRECT 0.8 mg/dl (0-1.1); BILIRUBIN,TOTAL 0.8 mg/dl (0.2-1.3); BLOOD UREA NITROGEN 39 mg/dl (7-20); CALCIUM 8.9 mg/dl (8.4-10.2); CARBON DIOXIDE 24 mmol/L (21-31); CHLORIDE 108 mmol/L (97-110); CHOL/HDL RATIO 3.3 RATIO; CHOLESTEROL 93 mg/dl (100-200); CREATININE 1.68 mg/dl (0.61-1.24); GLUCOSE 127 mg/dl (70-220); HDL CHOLESTEROL 28 mg/dl (31-75); LDL CHOLESTEROL,CALCULATED 35 mg/dl; MAGNESIUM 2.2 mg/dl (1.7-2.5); POTASSIUM 4.8 mmol/L (3.5-5.1); SODIUM 141 mmol/L (135-144); TOTAL PROTEIN 6.3 g/dl (6.1-8.1); TRIGLYCERIDES 149 mg/dl (0-149)
[2019-04-14 07:18] LABS: HEMOGLOBIN A1C 10.8 % (0-5.9)
[2019-04-14] MEDS: INSULIN ASPART [NOVOLOG] 3 ML PEN SC ×4 (07:55→22:15)
[2019-04-14] MEDS: BENAZEPRIL 10 MG TAB PO (08:15)
[2019-04-14] MEDS: ISOSORBIDE MONONITRATE(SR)30 MG TAB PO (08:15)
[2019-04-14] MEDS: APIXABAN 5 MG TABLET PO ×2 (08:15→20:27)
[2019-04-14] MEDS: FUROSEMIDE 20 MG TAB PO (08:16)
[2019-04-14] MEDS: FINASTERIDE 5 MG TAB PO (08:17)
[2019-04-14] MEDS ORDERED: INSULIN GLARGINE [LANtus] 3 ML PEN SC (09:00)
[2019-04-14] MEDS ORDERED: INSULIN GLARGINE [LANTus] (100 UNITS/ML) SYG SC (09:00)
[2019-04-14 14:49] LABS: ADD UMIC NO; UR ASCORBIC ACID NEGATIVE (NEGATIVE); UR BILIRUBIN (Dip) NEGATIVE (NEGATIVE); UR BLOOD (Dip) NEGATIVE (NEGATIVE); UR CLARITY CLEAR (CLEAR); UR COLOR STRAW (YELLOW); UR GLUCOSE (Dip) NEGATIVE (NEGATIVE); UR KETONES (Dip) NEGATIVE (NEGATIVE); UR LEUKOCYTE ESTERASE (Dip) NEGATIVE Leu/ul (NEGATIVE); UR NITRITE (Dip) NEGATIVE (NEGATIVE); UR SPECIFIC GRAVITY (Dip) 1.006 (1.003-1.030); UR TOTAL PROTEIN (Dip) NEGATIVE (NEGATIVE); UR UROBILINOGEN (Dip) NEGATIVE (NEGATIVE)
[2019-04-14 15:12] LABS: CREATININE,URINE RANDOM 29.98 mg/dl (20-370)
[2019-04-14 15:12] LABS: SODIUM,URINE RANDOM 67 mmol/L (30-90)
[2019-04-14 19:13] LABS: CREATINE KINASE 157 IU/L (23-200)
[2019-04-14 19:24] LABS: CK INDEX 1.9; TROPONIN-I 0.026 ng/ml (0.000-0.120)
[2019-04-14 19:25] LABS: CK-MB 2.96 ng/ml (0.0-2.4)
[2019-04-14] MEDS: ATORVASTATIN 20 MG TAB PO (20:27)
[2019-04-14] MEDS: TAMSULOSIN (SR) 0.4 MG CAP PO (20:27)
[2019-04-14] MEDS ORDERED: NON-FORMULARY/PATIENT OWN MED (Simvastatin* (Zocor*) 40 MG) PO (21:00)
[2019-04-14] MEDS: INSULIN GLARGINE [LANTus] (100 UNITS/ML) SYG SC (22:13)
[2019-04-15 01:13] LABS: CREATINE KINASE 150 IU/L (23-200)
[2019-04-15 01:26] LABS: CK INDEX 1.7; TROPONIN-I 0.039 ng/ml (0.000-0.120)
[2019-04-15 01:39] LABS: CK-MB 2.48 ng/ml (0.0-2.4)
[2019-04-15] MEDS: ACCU-CHEK XX (02:02)
[2019-04-15 06:20] LABS: WHITE BLOOD COUNT 7.3 10^3/ul (4.8-10.8)
[2019-04-15 06:20] LABS: ADD MAN DIFF? NO; BASOPHILS % 0.5 % (0.0-2.0); EOSINOPHILS # 0.5 10^3/ul (0.0-0.5); EOSINOPHILS % 6.2 % (0.0-7.0); HEMATOCRIT 41.2 % (42.0-52.0); HEMOGLOBIN 13.3 g/dl (14.0-18.0); LYMPHOCYTES % 41.6 % (15.0-51.0); MEAN CORPUSCULAR HEMOGLOBIN 30.2 pg (29.0-33.0); MEAN CORPUSCULAR HGB CONC 32.3 g/dl (32.0-37.0); MEAN CORPUSCULAR VOLUME 93.6 fl (82.0-101.0); MEAN PLATELET VOLUME 10.4 fl (7.4-10.4); MONOCYTE # 0.8 10^3/ul (0.3-0.9); MONOCYTES % 11.3 % (0.0-11.0); NEUTROPHIL # 2.9 10^3/ul (1.6-7.5); PLATELET COUNT 170 10^3/UL (140-415); RED CELL DISTRIBUTION WIDTH 12.3 % (11.5-14.5)
[2019-04-15 06:48] LABS: ANION GAP 11 (5-13); BLOOD UREA NITROGEN 34 mg/dl (7-20); CALCIUM 9.3 mg/dl (8.4-10.2); CARBON DIOXIDE 26 mmol/L (21-31); CHLORIDE 107 mmol/L (97-110); CREATININE 1.63 mg/dl (0.61-1.24); GLUCOSE 72 mg/dl (70-220); MAGNESIUM 2.1 mg/dl (1.7-2.5); PHOSPHORUS 5.3 mg/dl (2.5-4.9); POTASSIUM 4.3 mmol/L (3.5-5.1); SODIUM 144 mmol/L (135-144)
[2019-04-15] MEDS: INSULIN ASPART [NOVOLOG] 3 ML PEN SC ×4 (07:55→21:00)
[2019-04-15] MEDS: FINASTERIDE 5 MG TAB PO (08:54)
[2019-04-15] MEDS: APIXABAN 5 MG TABLET PO ×2 (08:54→21:07)
[2019-04-15] MEDS: ISOSORBIDE MONONITRATE(SR)30 MG TAB PO (08:54)
[2019-04-15] MEDS: FUROSEMIDE 20 MG TAB PO (08:54)
[2019-04-15 10:52] LABS: GLUCOSE 139 mg/dl (70-220)
[2019-04-15] MEDS: TAMSULOSIN (SR) 0.4 MG CAP PO (21:07)
[2019-04-15] MEDS: ATORVASTATIN 20 MG TAB PO (21:07)
[2019-04-15] MEDS: INSULIN GLARGINE [LANTus] (100 UNITS/ML) SYG SC (22:16)
[2019-04-16] MEDS: ACCU-CHEK XX (01:33)
[2019-04-16 06:53] LABS: ANION GAP 7 (5-13); BLOOD UREA NITROGEN 39 mg/dl (7-20); CALCIUM 9.1 mg/dl (8.4-10.2); CARBON DIOXIDE 25 mmol/L (21-31); CHLORIDE 108 mmol/L (97-110); CREATININE 1.45 mg/dl (0.61-1.24); GLUCOSE 114 mg/dl (70-220); POTASSIUM 4.3 mmol/L (3.5-5.1); SODIUM 140 mmol/L (135-144)
[2019-04-16 07:05] LABS: MAGNESIUM 2.1 mg/dl (1.7-2.5)
[2019-04-16] MEDS: INSULIN ASPART [NOVOLOG] 3 ML PEN SC ×4 (07:55→21:44)
[2019-04-16] MEDS: FUROSEMIDE 20 MG TAB PO (08:15)
[2019-04-16] MEDS: APIXABAN 5 MG TABLET PO ×2 (08:15→20:27)
[2019-04-16] MEDS: FINASTERIDE 5 MG TAB PO (08:15)
[2019-04-16] MEDS: ISOSORBIDE MONONITRATE(SR)30 MG TAB PO (08:16)
[2019-04-16] MEDS ORDERED: ALBUTEROL 0.083% (NEB) 2.5 MG/3 ML AMP HHN (09:00)
[2019-04-16] MEDS: ATORVASTATIN 20 MG TAB PO (20:26)
[2019-04-16] MEDS: TAMSULOSIN (SR) 0.4 MG CAP PO (20:27)
[2019-04-16] MEDS: INSULIN GLARGINE [LANTus] (100 UNITS/ML) SYG SC (20:41)
[2019-04-17] MEDS: ACCU-CHEK XX (02:29)
[2019-04-17] MEDS: INSULIN ASPART [NOVOLOG] 3 ML PEN SC ×4 (07:55→20:38)
[2019-04-17] MEDS: FINASTERIDE 5 MG TAB PO (08:30)
[2019-04-17] MEDS: ISOSORBIDE MONONITRATE(SR)30 MG TAB PO (08:31)
[2019-04-17] MEDS: FUROSEMIDE 20 MG TAB PO (08:31)
[2019-04-17] MEDS: APIXABAN 5 MG TABLET PO ×2 (08:31→20:37)
[2019-04-17 14:57] LABS: CREATININE, RANDOM URINE 32 mg/dL (20-320); MICROALBUMIN 0.7 mg/dL; MICROALBUMIN/CREATININE RATIO 22 (<30)
[2019-04-17] MEDS: ACETYLCYSTEINE 600 MG CAP PO ×2 (17:30→20:37)
[2019-04-17] MEDS: SOD CHLORIDE 0.9% 1,000 ML IV (18:12)
[2019-04-17] MEDS: TAMSULOSIN (SR) 0.4 MG CAP PO (20:37)
[2019-04-17] MEDS: ATORVASTATIN 20 MG TAB PO (20:37)
[2019-04-17] MEDS: INSULIN GLARGINE [LANTus] (100 UNITS/ML) SYG SC (20:50)
[2019-04-18] MEDS: ACCU-CHEK XX (02:00)
[2019-04-18 05:34] LABS: ANION GAP 6 (5-13); BLOOD UREA NITROGEN 39 mg/dl (7-20); CALCIUM 8.9 mg/dl (8.4-10.2); CARBON DIOXIDE 26 mmol/L (21-31); CHLORIDE 111 mmol/L (97-110); CREATININE 1.59 mg/dl (0.61-1.24); GLUCOSE 87 mg/dl (70-220); POTASSIUM 4.4 mmol/L (3.5-5.1); SODIUM 143 mmol/L (135-144)
[2019-04-18] MEDS: INSULIN ASPART [NOVOLOG] 3 ML PEN SC ×4 (07:50→20:41)
[2019-04-18] MEDS: ACETYLCYSTEINE 600 MG CAP PO ×2 (08:43→20:42)
[2019-04-18] MEDS: FINASTERIDE 5 MG TAB PO (08:44)
[2019-04-18] MEDS: ISOSORBIDE MONONITRATE(SR)30 MG TAB PO (08:44)
[2019-04-18] MEDS: APIXABAN 5 MG TABLET PO ×2 (08:45→20:42)
[2019-04-18] MEDS: IOHEXOL 300MG/ML 150 ML BTL (12:28)
[2019-04-18] MEDS: IODIXANOL LOCM 100 ML BTL (12:28)
[2019-04-18] MEDS: SOD CHLORIDE 0.9% 100 ML ×2 (12:28→12:29)
[2019-04-18] MEDS: SOD CHLORIDE 0.9% 1,000 ML IV (12:55)
[2019-04-18] MEDS: INSULIN GLARGINE [LANTus] (100 UNITS/ML) SYG SC (20:40)
[2019-04-18] MEDS: ATORVASTATIN 20 MG TAB PO (20:42)
[2019-04-18] MEDS: TAMSULOSIN (SR) 0.4 MG CAP PO (20:43)
[2019-04-19] MEDS: ACCU-CHEK XX (01:44)
[2019-04-19 05:43] LABS: ANION GAP 10 (5-13); BLOOD UREA NITROGEN 34 mg/dl (7-20); CALCIUM 9.1 mg/dl (8.4-10.2); CARBON DIOXIDE 23 mmol/L (21-31); CHLORIDE 112 mmol/L (97-110); CREATININE 1.33 mg/dl (0.61-1.24); GLUCOSE 97 mg/dl (70-220); POTASSIUM 4.2 mmol/L (3.5-5.1); SODIUM 145 mmol/L (135-144)
[2019-04-19] MEDS: SOD CHLORIDE 0.9% 1,000 ML IV (05:44)
[2019-04-19] MEDS: INSULIN ASPART [NOVOLOG] 3 ML PEN SC ×2 (07:50→12:32)
[2019-04-19] MEDS: FINASTERIDE 5 MG TAB PO (08:58)
[2019-04-19] MEDS: ISOSORBIDE MONONITRATE(SR)30 MG TAB PO (08:58)
[2019-04-19] MEDS: ACETYLCYSTEINE 600 MG CAP PO (09:00)
[2019-04-19] MEDS: APIXABAN 5 MG TABLET PO (09:01)
== END 2019-04-19 13:17 | disposition home or self-care (01) | DRG 149 ==
LOC: E/R 16:10 → MS1 04-17 21:05 → TEL 19:52
DX: R42 Dizziness and giddiness (principal); I50.23 Acute on chronic systolic (congestive) heart failure; N17.9 Acute kidney failure, unspecified; I13.0 Hypertensive heart and chronic kidney disease with heart failure and stage 1 through stage 4 chronic kidney disease, or unspecified chronic kidney disease; E11.9 Type 2 diabetes mellitus without complications; I48.91 Unspecified atrial fibrillation; I25.5 Ischemic cardiomyopathy; E11.22 Type 2 diabetes mellitus with diabetic chronic kidney disease; N18.9 Chronic kidney disease, unspecified; N40.0 Benign prostatic hyperplasia without lower urinary tract symptoms; E78.5 Hyperlipidemia, unspecified; I48.2 Chronic atrial fibrillation; Z79.4 Long term (current) use of insulin; Z79.02 Long term (current) use of antithrombotics/antiplatelets; Z95.810 Presence of automatic (implantable) cardiac defibrillator
CPT/HCPCS: 70450; 70498; 71045; 74018; 80048; 80053; 80061; 81003; 82043; 82550; 82553; 82947; 82962; 83036; 83690; 83735; 83880; 84100; 84155; 84300; 84484; 85025; 85610; 85730; 93005; 93306; 93880; 94664; 96374; 96375; 97116; 97161; 97166; 97530; 99285-25; G0378

== ENCOUNTER 2019-05-26 13:20 | Inpatient (IN) | payer BC ==
[2019-05-26] MEDS: ASPIRIN 81 MG TAB PO (14:36)
[2019-05-26] MEDS: FUROSEMIDE 40 MG INJ IV (14:37)
[2019-05-26 14:39] LABS: WHITE BLOOD COUNT 6.2 10^3/ul (4.8-10.8)
[2019-05-26 14:39] LABS: ABNORMAL IP MESSAGE 1; HEMATOCRIT 35.9 % (42.0-52.0); HEMOGLOBIN 11.2 g/dl (14.0-18.0); MEAN CORPUSCULAR HEMOGLOBIN 29.5 pg (29.0-33.0); MEAN CORPUSCULAR HGB CONC 31.2 g/dl (32.0-37.0); MEAN CORPUSCULAR VOLUME 94.5 fl (82.0-101.0); MEAN PLATELET VOLUME 11.5 fl (7.4-10.4); PLATELET COUNT 72 10^3/UL (140-415); POSITIVE DIFF @See below; RED CELL DISTRIBUTION WIDTH 13.8 % (11.5-14.5)
[2019-05-26 14:41] LABS: ADD MAN DIFF? YES
[2019-05-26 14:59] LABS: INR 1.23; PROTIME 15.6 Sec (11.9-14.9); PT RATIO 1.2
[2019-05-26 15:00] LABS: PARTIAL THROMBOPLASTIN TIME 34.1 Sec (23.0-35.0)
[2019-05-26 15:08] LABS: ANION GAP 11 (5-13); BLOOD UREA NITROGEN 35 mg/dl (7-20); CALCIUM 8.7 mg/dl (8.4-10.2); CARBON DIOXIDE 21 mmol/L (21-31); CHLORIDE 108 mmol/L (97-110); CREATININE 1.69 mg/dl (0.61-1.24); GLUCOSE 160 mg/dl (70-220); POTASSIUM 4.7 mmol/L (3.5-5.1); SODIUM 140 mmol/L (135-144)
[2019-05-26 15:13] LABS: BAND NEUTROPHILS % (M) 1 % (0-4); LYMPHOCYTES #M 1.7 10^3/ul (0.8-2.9); LYMPHOCYTES % (M) 29 % (15-51); MONOCYTE #M 0.8 10^3/ul (0.3-0.9); MONOCYTES % (M) 13 % (0-11); PLATELET ESTIMATE DECREASED; POLYCHROMASIA 1+ (0-0); REACTIVE LYMPHOCYTES #M 0.1 10^3/ul (0.0-0.0); REACTIVE LYMPHOCYTES% (M) 3 % (0-0); SEG NEUT #M 3.3 10^3/ul (1.6-7.5); SEGMENTED NEUTROPHILS (M) % 54 % (39-77); SMUDGE%M 8 % (0-0)
[2019-05-26 15:20] LABS: B-TYPE NATRIURETIC PEPTIDE 3000 PG/ML (0-450); TROPONIN-I 0.031 ng/ml (0.000-0.120)
[2019-05-26] MEDS ORDERED: ACETAMINOPHEN 325 MG TAB PO (16:00)
[2019-05-26] MEDS ORDERED: ONDANSETRON 4 MG INJ IV ×2 (16:00→16:30)
[2019-05-26] MEDS ORDERED: NACL 0.9% 3 ML SYG IV (16:30)
[2019-05-26] MEDS ORDERED: HYDROCODONE/APAP (5/325) TAB PO (16:30)
[2019-05-26] MEDS ORDERED: morphine 2 MG INJ IV (16:30)
[2019-05-26] MEDS: INSULIN ASPART [NOVOLOG] 3 ML PEN SC ×3 (17:46→20:41)
[2019-05-26 20:01] LABS: CREATINE KINASE 366 IU/L (23-200)
[2019-05-26 20:14] LABS: CK INDEX 0.8; TROPONIN-I 0.027 ng/ml (0.000-0.120)
[2019-05-26 20:15] LABS: CK-MB 2.94 ng/ml (0.0-2.4)
[2019-05-26] MEDS: BUMETANIDE 3 MG in DEXTROSE 5% 18 ML IV (20:24)
[2019-05-26] MEDS: ISOSORBIDE MONONITRATE(SR)30 MG TAB PO (20:25)
[2019-05-26] MEDS: FISH OIL 1,000 MG CAP PO (20:25)
[2019-05-26] MEDS: ATORVASTATIN 20 MG TAB PO (20:25)
[2019-05-26] MEDS: APIXABAN 5 MG TABLET PO (20:26)
[2019-05-26] MEDS: TAMSULOSIN (SR) 0.4 MG CAP PO (20:26)
[2019-05-26] MEDS: INSULIN GLARGINE [LANTus] (100 UNITS/ML) SYG SC (20:41)
[2019-05-26] MEDS ORDERED: NON-FORMULARY/PATIENT OWN MED (Omega-3 Fatty Acids/Fish Oil (Fish Oil 1,000 mg Capsule) 1 PO (21:00)
[2019-05-26] MEDS ORDERED: INSULIN GLARGINE [LANtus] 3 ML PEN SC (21:00)
[2019-05-26] MEDS ORDERED: NON-FORMULARY/PATIENT OWN MED (Simvastatin* (Zocor*) 40 MG) PO (21:00)
[2019-05-27] MEDS: ACCU-CHEK XX (01:50)
[2019-05-27 02:45] LABS: ADD MAN DIFF? NO
[2019-05-27 02:49] LABS: WHITE BLOOD COUNT 5.5 10^3/ul (4.8-10.8)
[2019-05-27 02:49] LABS: ABNORMAL IP MESSAGE 1; BASOPHILS % 0.4 % (0.0-2.0); EOSINOPHILS # 0.3 10^3/ul (0.0-0.5); EOSINOPHILS % 5.4 % (0.0-7.0); HEMOGLOBIN 10.7 g/dl (14.0-18.0); LYMPHOCYTES # 1.9 10^3/ul (0.8-2.9); LYMPHOCYTES % 35.1 % (15.0-51.0); MEAN CORPUSCULAR HEMOGLOBIN 29.7 pg (29.0-33.0); MEAN CORPUSCULAR HGB CONC 31.5 g/dl (32.0-37.0); MEAN CORPUSCULAR VOLUME 94.4 fl (82.0-101.0); MEAN PLATELET VOLUME 11.5 fl (7.4-10.4); MONOCYTE # 0.6 10^3/ul (0.3-0.9); MONOCYTES % 11.2 % (0.0-11.0); NEUTROPHIL # 2.6 10^3/ul (1.6-7.5); NEUTROPHILS % 47.7 % (39.0-77.0); PLATELET COUNT 80 10^3/UL (140-415); POSITIVE DIFF @See below; RED CELL DISTRIBUTION WIDTH 13.6 % (11.5-14.5)
[2019-05-27 03:04] LABS: CREATINE KINASE 323 IU/L (23-200)
[2019-05-27 03:06] LABS: ALANINE AMINOTRANSFERASE 41 IU/L (13-69); ALBUMIN 3.9 g/dl (3.3-4.9); ALBUMIN/GLOBULIN RATIO 1.18; ALKALINE PHOSPHATASE 140 IU/L (42-121); ANION GAP 8 (5-13); ASPARTATE AMINO TRANSFERASE 38 IU/L (15-46); BILIRUBIN,INDIRECT 1.3 mg/dl (0-1.1); BILIRUBIN,TOTAL 1.3 mg/dl (0.2-1.3); BLOOD UREA NITROGEN 37 mg/dl (7-20); CALCIUM 9.2 mg/dl (8.4-10.2); CARBON DIOXIDE 27 mmol/L (21-31); CHLORIDE 108 mmol/L (97-110); CHOL/HDL RATIO 2.6 RATIO; CHOLESTEROL 80 mg/dl (100-200); CREATININE 1.72 mg/dl (0.61-1.24); GLUCOSE 72 mg/dl (70-220); HDL CHOLESTEROL 30 mg/dl (31-75); LDL CHOLESTEROL,CALCULATED 41 mg/dl; MAGNESIUM 2.6 mg/dl (1.7-2.5); PHOSPHORUS 4.3 mg/dl (2.5-4.9); POTASSIUM 4.1 mmol/L (3.5-5.1); SODIUM 143 mmol/L (135-144); TOTAL PROTEIN 7.2 g/dl (6.1-8.1); TRIGLYCERIDES 46 mg/dl (0-149)
[2019-05-27 03:17] LABS: CK INDEX 0.8; TROPONIN-I 0.048 ng/ml (0.000-0.120)
[2019-05-27 03:20] LABS: CK-MB 2.59 ng/ml (0.0-2.4)
[2019-05-27 03:24] LABS: FREE THYROXINE INDEX (Calc) 2.89 ug/ml (0.65-3.89); T3 UPTAKE 41.3 % (23.5-40.5)
[2019-05-27 03:25] LABS: ADD UMIC NO; UR ASCORBIC ACID NEGATIVE (NEGATIVE); UR BILIRUBIN (Dip) NEGATIVE (NEGATIVE); UR BLOOD (Dip) NEGATIVE (NEGATIVE); UR CLARITY CLEAR (CLEAR); UR COLOR STRAW (YELLOW); UR GLUCOSE (Dip) NEGATIVE (NEGATIVE); UR KETONES (Dip) NEGATIVE (NEGATIVE); UR LEUKOCYTE ESTERASE (Dip) NEGATIVE Leu/ul (NEGATIVE); UR NITRITE (Dip) NEGATIVE (NEGATIVE); UR SPECIFIC GRAVITY (Dip) 1.005 (1.003-1.030); UR TOTAL PROTEIN (Dip) NEGATIVE (NEGATIVE); UR UROBILINOGEN (Dip) NEGATIVE (NEGATIVE)
[2019-05-27] MEDS: BUMETANIDE 1 MG INJ IV ×2 (05:10→17:33)
[2019-05-27 08:16] LABS: CREATININE,URINE RANDOM 26.41 mg/dl (20-370)
[2019-05-27 08:16] LABS: SODIUM,URINE RANDOM 73 mmol/L (30-90)
[2019-05-27] MEDS: APIXABAN 5 MG TABLET PO ×2 (08:46→20:56)
[2019-05-27] MEDS: FINASTERIDE 5 MG TAB PO (08:46)
[2019-05-27] MEDS: ISOSORBIDE MONONITRATE(SR)30 MG TAB PO ×2 (08:47→20:55)
[2019-05-27] MEDS: METOLAZONE 5 MG TAB PO (08:48)
[2019-05-27] MEDS: FISH OIL 1,000 MG CAP PO ×2 (08:48→20:55)
[2019-05-27] MEDS: INSULIN ASPART [NOVOLOG] 3 ML PEN SC ×7 (08:51→20:51)
[2019-05-27] MEDS ORDERED: FUROSEMIDE 20 MG TAB PO (09:00)
[2019-05-27] MEDS ORDERED: LISINOPRIL 20 MG TAB PO (09:00)
[2019-05-27] MEDS: ATORVASTATIN 20 MG TAB PO (20:55)
[2019-05-27] MEDS: TAMSULOSIN (SR) 0.4 MG CAP PO (20:55)
[2019-05-27] MEDS: INSULIN GLARGINE [LANTus] (100 UNITS/ML) SYG SC (21:06)
[2019-05-28] MEDS: ACCU-CHEK XX (02:50)
[2019-05-28] MEDS: BUMETANIDE 1 MG INJ IV ×2 (05:54→17:18)
[2019-05-28 06:19] LABS: ADD MAN DIFF? NO
[2019-05-28 06:32] LABS: ABNORMAL IP MESSAGE 1; BASOPHILS % 0.5 % (0.0-2.0); EOSINOPHILS # 0.2 10^3/ul (0.0-0.5); EOSINOPHILS % 3.5 % (0.0-7.0); HEMATOCRIT 34.9 % (42.0-52.0); LYMPHOCYTES # 1.6 10^3/ul (0.8-2.9); LYMPHOCYTES % 24.4 % (15.0-51.0); MEAN CORPUSCULAR HEMOGLOBIN 29.5 pg (29.0-33.0); MEAN CORPUSCULAR HGB CONC 31.5 g/dl (32.0-37.0); MEAN CORPUSCULAR VOLUME 93.6 fl (82.0-101.0); MEAN PLATELET VOLUME 11.4 fl (7.4-10.4); MONOCYTE # 0.7 10^3/ul (0.3-0.9); MONOCYTES % 11.3 % (0.0-11.0); NEUTROPHIL # 3.9 10^3/ul (1.6-7.5); NEUTROPHILS % 59.8 % (39.0-77.0); PLATELET COUNT 93 10^3/UL (140-415); POSITIVE DIFF @See below; RED BLOOD COUNT 3.73 10^6/ul (4.70-6.10); RED CELL DISTRIBUTION WIDTH 13.7 % (11.5-14.5)
[2019-05-28 06:32] LABS: WHITE BLOOD COUNT 6.5 10^3/ul (4.8-10.8)
[2019-05-28 07:17] LABS: ANION GAP 10 (5-13); BLOOD UREA NITROGEN 45 mg/dl (7-20); CALCIUM 9.3 mg/dl (8.4-10.2); CARBON DIOXIDE 30 mmol/L (21-31); CHLORIDE 98 mmol/L (97-110); CREATININE 1.82 mg/dl (0.61-1.24); GLUCOSE 181 mg/dl (70-220); MAGNESIUM 2.3 mg/dl (1.7-2.5); PHOSPHORUS 4.8 mg/dl (2.5-4.9); POTASSIUM 4.1 mmol/L (3.5-5.1); SODIUM 138 mmol/L (135-144)
[2019-05-28] MEDS: INSULIN ASPART [NOVOLOG] 3 ML PEN SC ×7 (07:41→21:41)
[2019-05-28] MEDS: FINASTERIDE 5 MG TAB PO (08:11)
[2019-05-28] MEDS: APIXABAN 5 MG TABLET PO ×2 (08:13→21:36)
[2019-05-28] MEDS: ISOSORBIDE MONONITRATE(SR)30 MG TAB PO ×2 (08:13→21:35)
[2019-05-28] MEDS: FISH OIL 1,000 MG CAP PO ×2 (08:13→21:34)
[2019-05-28] MEDS: INSULIN GLARGINE [LANTus] (100 UNITS/ML) SYG SC ×2 (21:00→23:54)
[2019-05-28] MEDS: TAMSULOSIN (SR) 0.4 MG CAP PO (21:34)
[2019-05-28] MEDS: ATORVASTATIN 20 MG TAB PO (21:36)
[2019-05-29] MEDS: ACCU-CHEK XX (02:40)
[2019-05-29] MEDS: BUMETANIDE 1 MG INJ IV (05:48)
[2019-05-29] MEDS: INSULIN ASPART [NOVOLOG] 3 ML PEN SC ×7 (08:38→21:00)
[2019-05-29] MEDS: FINASTERIDE 5 MG TAB PO (09:44)
[2019-05-29] MEDS: ISOSORBIDE MONONITRATE(SR)30 MG TAB PO ×2 (09:44→21:20)
[2019-05-29] MEDS: FISH OIL 1,000 MG CAP PO ×2 (09:44→21:20)
[2019-05-29] MEDS: APIXABAN 5 MG TABLET PO ×2 (09:44→21:20)
[2019-05-29 15:01] LABS: CREATININE, RANDOM URINE 26 mg/dL (20-320); MICROALBUMIN 1.1 mg/dL; MICROALBUMIN/CREATININE RATIO 42 (<30)
[2019-05-29] MEDS: BUMETANIDE 1 MG TAB PO (17:54)
[2019-05-29] MEDS: TAMSULOSIN (SR) 0.4 MG CAP PO (21:20)
[2019-05-29] MEDS: ATORVASTATIN 20 MG TAB PO (21:20)
[2019-05-29] MEDS: INSULIN GLARGINE [LANTus] (100 UNITS/ML) SYG SC (21:59)
[2019-05-30] MEDS: ACCU-CHEK XX (02:00)
[2019-05-30 05:39] LABS: ADD MAN DIFF? NO
[2019-05-30 05:46] LABS: BASOPHILS % 0.3 % (0.0-2.0); EOSINOPHILS # 0.3 10^3/ul (0.0-0.5); EOSINOPHILS % 5.5 % (0.0-7.0); HEMATOCRIT 36.1 % (42.0-52.0); HEMOGLOBIN 11.2 g/dl (14.0-18.0); LYMPHOCYTES # 2.5 10^3/ul (0.8-2.9); LYMPHOCYTES % 39.7 % (15.0-51.0); MEAN CORPUSCULAR HEMOGLOBIN 28.7 pg (29.0-33.0); MEAN CORPUSCULAR VOLUME 92.6 fl (82.0-101.0); MEAN PLATELET VOLUME 10.5 fl (7.4-10.4); MONOCYTE # 0.7 10^3/ul (0.3-0.9); MONOCYTES % 11.3 % (0.0-11.0); NEUTROPHIL # 2.7 10^3/ul (1.6-7.5); PLATELET COUNT 127 10^3/UL (140-415); RED CELL DISTRIBUTION WIDTH 13.4 % (11.5-14.5)
[2019-05-30 05:46] LABS: WHITE BLOOD COUNT 6.2 10^3/ul (4.8-10.8)
[2019-05-30 06:07] LABS: PHOSPHORUS 4.9 mg/dl (2.5-4.9)
[2019-05-30 06:07] LABS: MAGNESIUM 2.2 mg/dl (1.7-2.5)
[2019-05-30 06:10] LABS: ANION GAP 7 (5-13); BLOOD UREA NITROGEN 47 mg/dl (7-20); CALCIUM 9.3 mg/dl (8.4-10.2); CARBON DIOXIDE 32 mmol/L (21-31); CHLORIDE 97 mmol/L (97-110); CREATININE 1.56 mg/dl (0.61-1.24); GLUCOSE 123 mg/dl (70-220); POTASSIUM 3.5 mmol/L (3.5-5.1); SODIUM 136 mmol/L (135-144)
[2019-05-30] MEDS: BUMETANIDE 1 MG TAB PO (06:22)
[2019-05-30] MEDS: INSULIN ASPART [NOVOLOG] 3 ML PEN SC ×4 (08:16→12:18)
[2019-05-30] MEDS: FISH OIL 1,000 MG CAP PO (08:50)
[2019-05-30] MEDS: FINASTERIDE 5 MG TAB PO (08:51)
[2019-05-30] MEDS: APIXABAN 5 MG TABLET PO (08:51)
[2019-05-30] MEDS: ISOSORBIDE MONONITRATE(SR)30 MG TAB PO (08:51)
== END 2019-05-30 13:58 | disposition home or self-care (01) | DRG 682 ==
LOC: E/R 13:20 → 6WM 15:38
DX: I12.9 Hypertensive chronic kidney disease with stage 1 through stage 4 chronic kidney disease, or unspecified chronic kidney disease (principal); I50.23 Acute on chronic systolic (congestive) heart failure; N17.9 Acute kidney failure, unspecified; N18.4 Chronic kidney disease, stage 4 (severe); I48.2 Chronic atrial fibrillation; E11.8 Type 2 diabetes mellitus with unspecified complications; E87.70 Fluid overload, unspecified; I25.5 Ischemic cardiomyopathy; D63.1 Anemia in chronic kidney disease; N40.0 Benign prostatic hyperplasia without lower urinary tract symptoms; N18.9 Chronic kidney disease, unspecified; E78.5 Hyperlipidemia, unspecified; Z79.4 Long term (current) use of insulin; E66.9 Obesity, unspecified; Z68.30 Body mass index [BMI] 30.0-30.9, adult; Z95.810 Presence of automatic (implantable) cardiac defibrillator
CPT/HCPCS: 36415; 71045; 80048; 80053; 80061; 81003; 82043; 82550; 82553; 82962; 83036; 83735; 83880; 84100; 84155; 84300; 84436; 84443; 84479; 84484; 85025; 85610; 85730; 93005; 96374; 99285-25